=== PATIENT | male | born 1970 | race African-American/Black ===

== ENCOUNTER 2019-04-21 11:41 | Emergency (ER) | payer BC, MEDICAID ==
[~2019-04-21] VITALS: Ht 170.2 cm; Wt 84.0 kg
[2019-04-21 13:16] VITALS: BP 133/96
== END 2019-04-21 13:16 | disposition home or self-care (01) ==
LOC: ER 11:41
DX: S06.0X0A Concussion without loss of consciousness, initial encounter (principal); F12.10 Cannabis abuse, uncomplicated; F17.210 Nicotine dependence, cigarettes, uncomplicated; Y04.0XXA Assault by unarmed brawl or fight, initial encounter; Y93.89 Activity, other specified; Y92.89 Other specified places as the place of occurrence of the external cause
CPT/HCPCS: 99284